=== PATIENT | male | born 2000 | race Caucasian/White ===

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

== ENCOUNTER 2021-01-03 14:19 | Outpatient (CLI) | payer BC, SELFPAY | END 2021-01-03 14:20 | disposition home or self-care (01) | LOC: ANHCOVIDVC 14:19 | PROVIDERS: PCP Family Medicine | DX: Z23 Encounter for immunization (principal) | CPT/HCPCS: 0002A; 91300 ==